=== PATIENT | female | born 1955 | race Caucasian/White ===

== ENCOUNTER 2022-08-24 02:55 | Inpatient (IN) | payer OTHER ==
[2022-08-24 03:40] LABS: Absolute Lymphocytes (CBC) 2.7 K/uL (0.7-4.9); Hematocrit 43.5 % (36.0-45.0); Lymphocytes % 21.3 % (15.3-44.8); MCV 88.3 fL (80-100); MPV 9.6 fL (7.6-11.3); RBC Red Blood Cell Count 4.93 M/uL (3.86-4.86)
[2022-08-24] MEDS ORDERED: ONDANSETRON 4 MG/2 ML VIAL ONE ×4 (03:44→10:17)
[2022-08-24] MEDS ORDERED: KETOROLAC 30 MG/ML INJ ONE (03:44)
[2022-08-24 03:50] LABS: Albumin 3.6 g/dL (3.4-5.0); Bilirubin Total 0.4 mg/dL (0.2-1.0); Potassium 3.2 mEq/L (3.5-5.1); Protein, Total 7.2 g/dL (6.4-8.2); Troponin High Sensitivity 6.5 pg/mL (<58.9)
[2022-08-24] MEDS ORDERED: CEFTRIAXONE 1000 MG/VIAL ONE (04:37)
[2022-08-24] MEDS ORDERED: MORPHINE 4 MG/ML SYR ONE (04:37)
[2022-08-24] MEDS ORDERED: METRONIDAZOLE 500mg IVPB 500 MG/100 ML BAG IV ONE (04:37)
--- NOTE | 2022-08-24 05:46 | EDPHYS ---
Physician Documentation [facility] Name: Jamia Lopez Age: 66 yrs Sex: Female : 1955 Arrival Date: 08/24/2022 Time: 02:55 Bed 5 Private MD: ED Physician Raul Rocha HPI: 08/24 03:09 This 66 yrs old Female presents to ER via Unassigned with complaints of bs3 Abdominal Pain, Nausea. 03:09 Patient has a history of a hysterectomy as well as an unknown tumor removal and htn who bs3 is using natural things for her blood pressure who presents with abdominal pain started at approximately midnight she is associated nausea is located in the right upper quadrant she feels like it is also in the epigastric region she denies any vomiting she denies any chest pain or shortness of breath she denies any lower abdominal pain she denies any urinary symptoms she had similar pain 1 week ago but it went away and so she was not concerned. She does not have associated numbness, tingling, weakness of her extremities. . Historical: - Allergies: 03:19 No Known Allergies; kd3 - Home Meds: 03:19 None [Active]; kd3 - PMHx: 03:19 Hypertensive disorder; kd3 - Immunization history:: Adult Immunizations up to date. - Social history:: Smoking status: Patient/guardian denies using tobacco, but has a distant history of tobacco abuse. ROS: 03:09 Constitutional: Negative for fever, chills bs3 03:09 All other systems are negative. Exam: 03:09 Constitutional: This is a well developed, well nourished patient who is awake, alert, bs3 and in no acute distress. Head/Face: Normocephalic, atraumatic. Eyes: Pupils equal round and reactive to light, extra-ocular motions intact. Lids and lashes normal. ENT: mmm, no posterior phyarngeal erythema Neck: Trachea midline, no thyromegaly, no neck stiffness Chest/axilla: Normal chest wall appearance and motion. Nontender with no deformity. No lesions are appreciated. Cardiovascular: Regular rate and rhythm with a normal S1 and S2. symmetric pulses in upper extremities Respiratory: Lungs have equal breath sounds bilaterally, clear to auscultation, no respiratory distress Abdomen/GI: tender in RUQ, no peritoneal signs. Skin: Warm, dry with normal turgor. Normal color with no rashes, no lesions, and no evidence of cellulitis. MS/ Extremity: Pulses equal, no cyanosis. Neurovascular intact. Full, normal range of motion. Neuro: Awake and alert, GCS 15, oriented to person, place, time, and situation. Cranial nerves II-XII grossly intact. Motor strength 5/5 in all extremities. Sensory grossly intact. Vital Signs: 03:17 BP 197 / 68; Pulse 65; Resp 18; Temp 98.5(O); Pulse Ox 98% on R/A; Weight 84.37 kg; kd3 Height 5 ft. 0 in. ; 04:08 BP 171 / 66; Pulse 56; Resp 16; Pulse Ox 99% on R/A; jb4 05:12 BP 130 / 52; Pulse 58; Resp 15; Pulse Ox 93% on R/A; jb4 06:02 BP 135 / 64; Pulse 57; Resp 16; Pulse Ox 94% on R/A; jb4 03:17 Body Mass Index 36.33 (84.37 kg, 152.4 cm) kd3 MDM: 03:00 Patient medically screened. bs3 03:09 Data reviewed: vital signs, nurses notes. ED course: 66-year-old with nausea and upper bs3 abdominal pain possible atypical acute coronary syndrome will get EKG possible pancreatitis although patient last drink alcohol on night possible biliary pathology or hepatitis we will check LFTs and ultrasound of the gallbladder will reassess, blood pressure elevated here patient counseled at length she likely needs at least 2 medications for proper blood pressure control and her natural remedies are not currently working. 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 05:41 ED course: Dr. Tonja lacey. bs3 08/24 03:09 Order name: CBC with Diff; Complete Time: 04:37 bs3 08/24 03:09 Order name: CMP; Complete Time: 04:19 bs3 08/24 03:09 Order name: Lipase; Complete Time: 04:19 bs3 08/24 03:09 Order name: Troponin High Sensitivity; Complete Time: 04:19 bs3 08/24 03:09 Order name: US Abdomen Limited bs3 08/24 03:09 Order name: IV Saline Lock; Complete Time: 03:21 bs3 08/24 03:09 Order name: Labs collected and sent; Complete Time: 03:21 bs3 08/24 03:09 Order name: EKG - Nurse/Tech; Complete Time: 03:33 bs3 Administered Medications: 03:42 Drug: TORadol - Ketorolac IVP 15 mg Route: IVP; Site: right antecubital; jb4 07:36 Follow up: Response: No adverse reaction iw 03:42 Drug: Ondansetron IVP 4 mg Route: IVP; Site: right antecubital; jb4 07:36 Follow up: Response: No adverse reaction iw 04:35 Drug: Ondansetron IVP 4 mg Route: IVP; Site: right antecubital; jb4 07:36 Follow up: Response: Nausea is decreased iw 04:37 Drug: morphine IVP or IV 8 mg Route: IVP; Infused Over: 4 mins; Site: right antecubital;jb4 07:36 Follow up: Response: No adverse reaction; Pain is decreased iw 04:42 Drug: Rocephin IV 1 grams Route: IV; Rate: bolus; Site: right antecubital; jb4 07:36 Follow up: IV Status: Completed infusion iw 04:45 Drug: metroNIDAZOLE IVPB 500 mg Volume: 100 ml; Route: IVPB; Rate: 200 ml/hr; Infused jb4 Over: 30 mins; Site: right antecubital; 07:00 Follow up: IV Status: Completed infusion iw Disposition Summary: 08/24/22 05:45 Hospitalization Ordered Hospitalization Status: Inpatient Admission bs3 Provider: Emeka Solis bs3 Location: Telemetry/MedSur (Inpatient) bs3 Condition: Fair bs3 Problem: new bs3 Symptoms: have improved bs3 Bed/Room Type: Standard bs3 Room Assignment: 212(08/24/22 06:02) Diagnosis - Acute cholecystitis bs3 Forms: - Medication Reconciliation Form bs3 - SBAR form bs3 Signatures: Dispatcher [employer] EDMS Verena Marsh RN RN mw Bryson, James, RN RN jb4 Nati Angulo RN RN kd3 Raul Rocha MD MD bs3 Mary Dickerson RN iw Corrections: (The following items were deleted from the chart) 03:17 03:09 ED course: 66-year-old with nausea and upper abdominal pain possible atypical bs3 acute coronary syndrome will get EKG possible pancreatitis although patient last drink alcohol on night possible biliary pathology or hepatitis we will check LFTs and ultrasound of the gallbladder will reassess. bs3 03:17 03:09 Patient has a history of a hysterectomy as well as an unknown tumor removal and bs3 several medical conditions who presents with abdominal pain started at approximately midnight she is associated nausea is located in the right upper quadrant she feels like it is also in the epigastric region she denies any vomiting she denies any chest pain or shortness of breath she denies any lower abdominal pain she denies any urinary symptoms she had similar pain 1 week ago but it went away and so she was not concerned. She does not have associated numbness, tingling, weakness of her extremities. . bs3 06:02 05:45 bs3 mw
--- NOTE | 2022-08-24 05:46 | ER ---
Nurse's Notes [facility] Name: Jamia Lopez Age: 66 yrs Sex: Female : 1955 Arrival Date: 08/24/2022 Time: 02:55 Bed 5 Private MD: Diagnosis: Acute cholecystitis Presentation: 08/24 03:17 Chief complaint: Patient states: I started to have some right upper quadrant pain that kd3 started last night at about 11:30 and it has not gone away. My blood pressure is elevated. I have been treating it naturally with cinnamon and garlic. Coronavirus screen: Vaccine status: Patient reports receiving the 2nd dose of the covid vaccine. Ebola Screen: No symptoms or risks identified at this time. Initial Sepsis Screen: Does the patient meet any 2 criteria? No. Patient's initial sepsis screen is negative. Does the patient have a suspected source of infection? No. Patient's initial sepsis screen is negative. Risk Assessment: Do you want to hurt yourself or someone else? Patient reports no desire to harm self or others. Onset of symptoms was August 24, 2022. 03:17 Method Of Arrival: Ambulatory kd3 03:17 Acuity: MAVERICK 3 kd3 Triage Assessment: 03:19 General: Appears uncomfortable, Behavior is calm, cooperative. Pain: Complains of pain kd3 in right upper quadrant. GI: Reports upper abdominal pain, vomiting. Historical: - Allergies: 03:19 No Known Allergies; kd3 - Home Meds: 03:19 None [Active]; kd3 - PMHx: 03:19 Hypertensive disorder; kd3 - Immunization history:: Adult Immunizations up to date. - Social history:: Smoking status: Patient/guardian denies using tobacco, but has a distant history of tobacco abuse. Screenin:35 [facility] ED Fall Risk Assessment (Adult) History of falling in the last 3 months, iw including since admission. Abuse screen: Denies threats or abuse. Denies injuries from another. Nutritional screening: No deficits noted. Tuberculosis screening: No symptoms or risk factors identified. Assessment: 03:15 General: Appears in no apparent distress. uncomfortable, Behavior is calm, cooperative, jb4 appropriate for age. Pain: Complains of pain in chest and abdomen Pain does not radiate. Pain currently is 8 out of 10 on a pain scale. Neuro: Level of Consciousness is awake, alert, obeys commands, Oriented to person, place, time, situation. Cardiovascular: Patient's skin is warm and dry. Respiratory: Airway is patent Respiratory effort is even, unlabored, Respiratory pattern is regular, symmetrical. GI: Abdomen is non-distended, obese, Reports upper abdominal pain, nausea. : No signs and/or symptoms were reported regarding the genitourinary system. EENT: No signs and/or symptoms were reported regarding the EENT system. Derm: Skin is intact, Skin is pink, warm \T\ dry. Musculoskeletal: Circulation, motion, and sensation intact. Range of motion: intact in all extremities. 04:10 Reassessment: Patient appears in no apparent distress at this time. Patient and/or jb4 family updated on plan of care and expected duration. Pain level reassessed. Patient is alert, oriented x 3, equal unlabored respirations, skin warm/dry/pink. 05:12 Reassessment: Patient appears in no apparent distress at this time. Patient and/or jb4 family updated on plan of care and expected duration. Pain level reassessed. Patient is alert, oriented x 3, equal unlabored respirations, skin warm/dry/pink. Patient states feeling better. 06:02 Reassessment: Patient appears in no apparent distress at this time. Patient and/or jb4 family updated on plan of care and expected duration. Pain level reassessed. Patient is alert, oriented x 3, equal unlabored respirations, skin warm/dry/pink. 07:35 GI: Bowel sounds present X 4 quads. Abd is soft X 4 quads. iw Vital Signs: 03:17 BP 197 / 68; Pulse 65; Resp 18; Temp 98.5(O); Pulse Ox 98% on R/A; Weight 84.37 kg; kd3 Height 5 ft. 0 in. ; 04:08 BP 171 / 66; Pulse 56; Resp 16; Pulse Ox 99% on R/A; jb4 05:12 BP 130 / 52; Pulse 58; Resp 15; Pulse Ox 93% on R/A; jb4 06:02 BP 135 / 64; Pulse 57; Resp 16; Pulse Ox 94% on R/A; jb4 03:17 Body Mass Index 36.33 (84.37 kg, 152.4 cm) kd3 ED Course: 02:59 Patient arrived in ED. ag3 03:00 Raul Rocha MD is Attending Physician. bs3 03:14 Samuel Samaniego, RN is Primary Nurse. jb4 03:19 Triage completed. kd3 03:19 Arm band placed on. kd3 03:57 US Abdomen Limited In Process Unspecified. EDMS 05:45 Emeka Solis is Hospitalizing Provider. bs3 07:34 Maintain EMS IV. Dressing intact. Good blood return noted. Site clean \T\ dry. Gauge \T\ iw site: 18 RAC. 07:35 Patient has correct armband on for positive identification. iw 07:35 No provider procedures requiring assistance completed. Patient admitted, IV remains in iw place. Administered Medications: 03:42 Drug: TORadol - Ketorolac IVP 15 mg Route: IVP; Site: right antecubital; jb4 07:36 Follow up: Response: No adverse reaction iw 03:42 Drug: Ondansetron IVP 4 mg Route: IVP; Site: right antecubital; jb4 07:36 Follow up: Response: No adverse reaction iw 04:35 Drug: Ondansetron IVP 4 mg Route: IVP; Site: right antecubital; jb4 07:36 Follow up: Response: Nausea is decreased iw 04:37 Drug: morphine IVP or IV 8 mg Route: IVP; Infused Over: 4 mins; Site: right antecubital;jb4 07:36 Follow up: Response: No adverse reaction; Pain is decreased iw 04:42 Drug: Rocephin IV 1 grams Route: IV; Rate: bolus; Site: right antecubital; jb4 07:36 Follow up: IV Status: Completed infusion iw 04:45 Drug: metroNIDAZOLE IVPB 500 mg Volume: 100 ml; Route: IVPB; Rate: 200 ml/hr; Infused jb4 Over: 30 mins; Site: right antecubital; 07:00 Follow up: IV Status: Completed infusion iw Medication: 07:35 VIS not applicable for this client. iw Outcome: 05:45 Decision to Hospitalize by Provider. bs3 07:35 Admitted to OR accompanied by nurse, via stretcher. iw 07:35 Condition: good 07:35 Discharge instructions given to patient, Instructed on the need for admit, Demonstrated understanding of instructions. 07:35 Patient left the ED. iw Signatures: Dispatcher [employer] Mary Cano, RN RN iw Samuel Samaniego RN RN jb4 Hailee Manriquez 3 Nati Angulo RN RN kd3 Raul Rocha MD MD bs3
--- NOTE | 2022-08-24 05:49 | P.HP ---
Certification for Inpatient Patient admitted to: Inpatient With expected LOS: <2 Midnights Patient will require the following post-hospital care: None Practitioner: I am a practitioner with admitting privileges, knowledge of patient current condition, hospital course, and medical plan of care. Services: Services provided to patient in accordance with Admission requirements found in Title 42 Section 412.3 of the Code of Federal Regulations Patient History Date of Service: 08/24/22 Reason for admission: Cholecystitis History of Present Illness: Ms. Lopez is a 66-year-old female with past medical history of hypertension who presented to the emergency department with complaints of right upper quadrant abdominal pain radiating to the back associated with nausea and vomiting. She reports she has been experiencing these symptoms on and off for about 1 month now, worse after eating. She was found to have an elevated white count of 12.8. Gallbladder US revealed large gall stones. Dr. Turner was contacted and has agreed to consult. she was started on ceftriaxone and flagyl in the ED. Pain controlled after morphine. She will be admitted for further management. Allergies No Known Allergies Allergy (Unverified 08/24/22 07:27) Home medications list reviewed: Yes (NA) Home Medications: NK [No Home Meds] 08/24/22 - Past Medical/Surgical History Diabetic: No -: Hypertension -: Hysterectomy Psychosocial/ Personal History: Patient is . - Family History Father -: Heart disease, Cancer Mother -: Heart disease - Social History Smoking Status: Never smoker Alcohol use: Yes CD- Drugs: No Caffeine use: Yes Place of Residence: Home Review of Systems Gastrointestinal: Nausea, Vomiting, Abdominal Pain Physical Examination - Vital Signs Temperature: 98.5 F Blood Pressure: 130/52 Pulse: 58 Respirations: 17 Pulse Ox (%): 93 - Physical Exam General: Alert, In no apparent distress HEENT: Atraumatic, EOMI, Sclerae nonicteric Neck: Supple, 2+ carotid pulse no bruit Respiratory: Clear to auscultation bilaterally, Normal air movement Cardiovascular: Regular rate/rhythm, Normal S1 S2 Gastrointestinal: Non-distended, Tenderness (moderate RUQ) Musculoskeletal: No tenderness Integumentary: No rashes Neurological: Normal speech, Normal affect - Studies Laboratory Data (last 24 hrs) 08/24/22 03:15: Sodium 137, Potassium 3.2 L, BUN 18, Creatinine 0.87, Glucose 177 H, Total Bilirubin 0.4, AST 22, ALT 34, Alkaline Phosphatase 120 H, Lipase 49 08/24/22 03:15: WBC 12.80 H, Hgb 14.3, Hct 43.5, Plt Count 303 Assessment and Plan - Problems (Diagnosis) (1) Cholecystitis Current Visit: Yes Status: Acute (2) Hypertension Current Visit: Yes Status: Chronic Qualifiers: Hypertension type: primary hypertension Qualified Code(s): I10 - Essential (primary) hypertension - Plan Patient is admitted for further management of cholelithiasis/cholecystitis. NPO. IV antibiotics & hydration. Dr. Turner to see patient, likely take patient to OR for lap zain. Pain control and antiemetics as needed. BP control. She has been trying to manage it at home naturally with cinnamon and garlic, does not take any medications. Monitor and replete electrolytes per protocol. DVT prophylaxis. Full code. Discharge Plan: Home Plan to discharge in: 48 Hours - Advance Directives Does patient have a Living Will: No Does patient have a Durable POA for Healthcare: No - Code Status/Comfort Care Code Status Assessed: Yes Code Status: Full Code Physician Review: Patient Assessed, Agree with Above Assessment and Plan Critical Care: No Time Spent Managing Pts Care (In Minutes): 50
[2022-08-24] MEDS ORDERED: MORPHINE 4 MG/ML SYR IV PRN (07:27)
[2022-08-24] MEDS: NA CHLORIDE 0.9% 1,000 ML IV SCH ×2 (07:27→17:41)
[2022-08-24] MEDS ORDERED: SUCCINYLCHOLINE 20 MG/ML (10 ML) IV ONE (07:42)
[2022-08-24] MEDS ORDERED: BUPIVACAINE 0.5% PF 10 ML VIAL ONE (07:44)
--- NOTE | 2022-08-24 07:51 | P.CNS ---
Date of Consult: 08/24/22 Reason for consult: Abdominal pain History of present illness: Patient is a 66-year-old female comes in with right upper quadrant abdominal pain radiating to the back associated with nausea, vomiting and burping patient. Patient denies any sore throat, runny nose, cough, headaches, dizziness, chest pain fever or chills. Patient denies any diarrhea, constipation, blood per rectum, dysuria or hematuria. Patient has had similar episodes in the recent past. Episodes are postprandial in nature. Last night patient had tacos. Patient required large amount of IV pain medication to control her pain. As patient had leukocytosis she was admitted with acute cholecystitis and cholelithiasis based on the work-up done. Review of systems: Otherwise unremarkable Past medical history: Hypertension Past surgical history: Total abdominal hysterectomy Allergies: None Social history: Does not smoke tobacco, drinks alcohol occasionally Family history: Noncontributory Vital signs: Stable, afebrile Physical exam: Awake alert oriented x3 Head and neck exam: Cranial nerves II through XII grossly within normal limits, no neck masses, no JVD, throat clear and no evidence of icterus Chest: Clear Heart: S1-S2 Abdomen: Soft, nondistended, positive bowel sounds and positive right upper quadrant tenderness with minimal rebound, no rigidity or guarding Extremity: Neurovascular intact, nontender Neuro: Nonfocal Diagnostic data: Ultrasound shows cholelithiasis, White count is 12.8 Assessment: Acute cholecystitis and cholelithiasis Plan/recommendation: Admit, n.p.o., IV fluids, IV antibiotics and to the OR for laparoscopic cholecystectomy possible open. Patient understands risk benefits alternatives and agrees to procedure. CC:
[2022-08-24] MEDS ORDERED: Ringers Lactate 1,000 ML IV ONE (07:53)
[2022-08-24] MEDS ORDERED: propofoL 200 MG/20 ML VIAL IV ONE (08:09)
[2022-08-24] MEDS ORDERED: LIDOCAINE 2% MPF 5 ML VIAL ONE (08:09)
[2022-08-24] MEDS ORDERED: FENTANYL CITR 100 MCG/2 ML ONE (08:09)
[2022-08-24] MEDS ORDERED: MIDAZOLAM HCL 2 MG/2 ML INJ ONE (08:09)
[2022-08-24] MEDS ORDERED: ROCURONIUM 50 MG/5 ML VIAL IV ONE (08:09)
[2022-08-24] MEDS ORDERED: EPHEDRINE SULF 50 MG/ML VIAL ONE (08:40)
[2022-08-24] MEDS: CEFTRIAXONE 1,000 MG in NA CHLORIDE 0.9% 50 ML IVPB SCH (09:00)
[2022-08-24] MEDS: HEPARIN 5000 UNIT/ML 1 ML VIAL SQ SCH (09:00)
[2022-08-24] MEDS ORDERED: MEPERIDINE HCL 25 MG/ML SYR ONE (09:23)
[2022-08-24] MEDS ORDERED: dexAMETHasone 4 MG/ML VIAL ONE ×2 (09:24→09:25)
[2022-08-24] MEDS ORDERED: NEOSTIGMINE 1 MG/ML -10 ML VIAL ONE (09:29)
[2022-08-24] MEDS ORDERED: GLYCOPYRROLATE 0.2 MG/ML SYR ONE (09:29)
--- NOTE | 2022-08-24 09:44 | P.OP ---
Date of Service: 08/24/22 Preop diagnosis: Acute cholecystitis and cholelithiasis Postop diagnosis: Same, umbilical hernia Procedure performed: Laparoscopic cholecystectomy, repair of umbilical hernia Surgeon: Olvin Turner MD Asphalt Machine Operator: Shey YEPEZ Estimated blood loss: Minimal Specimen: Gallbladder and hernia sac Findings: As above Anesthesia: General Complications: None Drains: None Fluids and blood products: Nonapplicable Disposition: Recovery room Operative note: Patient brought to the OR and placed in the supine position. General anesthesia begun. Patient prepped and draped in the usual sterile fashion. Upon examination of the abdomen patient was noted to have a umbilical hernia. A 2 cm incision was made over the hernia after Marcaine 0.5% was infiltrated locally for postop pain control. Subcutaneous tissue divided and bleeding controlled cautery. Hernia sac and contents identified and excised and sent to pathology. 1.5 cm fascial defect remained. 12 mm trocar placed into the peritoneal cavity under direct vision. Number one 1 Vicryl stay sutures were placed prior to that. Pneumoperitoneum established. Three 5 mm trocars placed into the abdomen. 1 trocar placed in the epigastric region just to the right of midline. Two 5 mm trocar placed in the right subcostal region. There was extensive adhesions near the gallbladder. These were lysed with sharp and blunt dissection. The gallbladder was full of large stones. Fundus was retracted superiorly. Infundibulum identified and retracted inferolaterally. Cystic duct and cystic artery clearly identified with blunt dissection. Clips placed and both structures divided. Cautery used to remove the gallbladder from the liver bed. There was oozing from the liver bed. Most of it was easily controlled with cautery. At the end of the case this area was monitored carefully. Anorexia and Surgicel were utilized in the standard fashion to prevent further oozing. Prior to that he fluid was clear and there was no evidence of bleeding or bile leakage appreciated. Gallbladder was retrieved through the umbilicus via Endo Catch bag. And #1 Vicryl was used to close the hernia defect after the trocars were removed under direct vision. Subcutaneous wounds irrigated and bleeding controlled cautery. 3-0 chromic used to reapproximate subcutaneous tissue and close skin. Sterile dressing applied. Patient awakened and taken to recovery room in good general condition. CC:
[2022-08-24] MEDS ORDERED: Mastisol Adhesive Liq ONE (09:46)
[2022-08-24] MEDS ORDERED: ONDANSETRON 4 MG/2 ML VIAL IV PRN (09:46)
[2022-08-24] MEDS ORDERED: NA CHLORIDE 0.9% 1,000 ML ONE (10:01)
[2022-08-24] MEDS: HYDROMORPHONE HCL 1 MG/ML INJ ONE ×2 (10:10→10:15)
[2022-08-24 10:56] VITALS: BMI 36.3
[2022-08-24] MEDS ORDERED: HYDROMORPHONE HCL 1 MG/ML INJ IV ONE (11:13)
[2022-08-24] MEDS: METRONIDAZOLE 500mg IVPB 500 MG/100 ML BAG IV SCH ×2 (12:26→21:11)
[2022-08-24] MEDS: HYDROMORPHONE HCL 1 MG/ML INJ IV PRN (16:24)
--- NOTE | 2022-08-24 20:53 | RAD REPORT ---
EXAM DESCRIPTION: US - Abdomen Exam Limited - 08/24/2022 3:55 am CLINICAL HISTORY: The patient is 66 years old and is Female; ABD PAIN TECHNIQUE: Real-time ultrasound of the right upper quadrant with image documentation. COMPARISON: No relevant prior studies available. FINDINGS: Gallbladder: Multiple stones in the gallbladder. Gallbladder wall thickness 2.3 mm. No pericholecystic fluid visualized. Common bile duct: Common bile duct 4.1 mm in diameter. No stones. No dilation. IMPRESSION: Cholelithiasis. Electronically signed by: Karen Flores MD 08/24/2022 6:02 AM CDT Due to temporary technical issues with the PACS/Fluency reporting system, reports are being signed by the in house radiologists without review as a courtesy to insure prompt reporting. The interpreting radiologist is fully responsible for the content of the report.
[2022-08-24] MEDS: HYDROCODONE/APAP 7.5/325 MG TAB PO PRN (21:21)
[2022-08-25 03:11] LABS: Absolute Lymphocytes (CBC) 1.1 K/uL (0.7-4.9); Hematocrit 38.4 % (36.0-45.0); Lymphocytes % 5.3 % (15.3-44.8); MCV 88.9 fL (80-100); MPV 9.8 fL (7.6-11.3); RBC Red Blood Cell Count 4.32 M/uL (3.86-4.86)
[2022-08-25] MEDS: HYDROCODONE/APAP 7.5/325 MG TAB PO PRN (03:13)
[2022-08-25 03:28] LABS: Magnesium 1.9 mg/dL (1.6-2.4); Phosphorus 2.4 mg/dL (2.5-4.9)
[2022-08-25] MEDS: METRONIDAZOLE 500mg IVPB 500 MG/100 ML BAG IV SCH ×3 (04:32→20:19)
[2022-08-25] MEDS: POTASS/SODIUM PHOSPHATE 1 PKT POWD.PACK PO SCH ×3 (04:32→06:26)
[2022-08-25] MEDS: NA CHLORIDE 0.9% 1,000 ML IV SCH ×4 (04:33→23:27)
[2022-08-25 05:04] LABS: Blood Morphology Comment NOT SEEN (NOT SEEN); Platelet Estimate ADEQ; White Blood Cell Scan OK (OK)
[2022-08-25] MEDS ORDERED: PNEUMOCOCCAL VACCINE 0.5 ML IMVAC ONE (09:00)
[2022-08-25] MEDS: CEFTRIAXONE 1,000 MG in NA CHLORIDE 0.9% 50 ML IVPB SCH (09:47)
--- NOTE | 2022-08-25 09:53 | PN ---
Date of Progress Note: 08/25/2022 Subjective: The patient is awake, alert, tolerating diet, ambulating, pain controlled. Objective: Vital Signs: Stable, afebrile. Abdomen: Benign. Laboratory Data: White count, however, is 21,000. Assessment: Status post laparoscopic cholecystectomy for acute cholecystitis and cholelithiasis. Recommendations: Encourage incentive spirometry, ambulation, and IV antibiotics. Possible discharge tomorrow if her white count improves. Clinically, the patient is doing well. The patient did have very bad inflammation of the gallbladder. /MODL Voice ID: [id number] Report ID: [id number]
[2022-08-25] MEDS: HEPARIN 5000 UNIT/ML 1 ML VIAL SQ SCH ×2 (10:18→18:20)
[2022-08-25] MEDS: HYDROMORPHONE HCL 1 MG/ML INJ IV PRN ×3 (10:18→20:19)
--- NOTE | 2022-08-25 12:00 | P.PN ---
Subjective Date of Service: 08/25/22 Chief Complaint: Cholecystitis Patient has no new complaint. She is eating well. Her white cell count is elevated. She reported intermittent abdominal pain well controlled with the pain medications. Physical Examination - Vital Signs Temperature: 97.7 F Blood Pressure: 148/70 Pulse: 67 Respirations: 14 Pulse Ox (%): 94 - Physical Exam General: Alert, In no apparent distress, Oriented x3 HEENT: Mucous membr. moist/pink Neck: JVD not distended Respiratory: Clear to auscultation bilaterally, Normal air movement Cardiovascular: No edema, Regular rate/rhythm, Normal S1 S2 Gastrointestinal: Normal bowel sounds, Soft and benign, Non-distended Musculoskeletal: No swelling Integumentary: No cyanosis Neurological: Normal strength at 5/5 x4 extr Assessment And Plan - Current Problems (Diagnosis) (1) Acute cholecystitis Current Visit: Yes Status: Acute (2) Leukocytosis Current Visit: Yes Status: Acute (3) Hypertension Current Visit: Yes Status: Chronic Qualifiers: Hypertension type: primary hypertension Qualified Code(s): I10 - Essential (primary) hypertension - Plan Status post lap cholecystectomy yesterday. Leukocytosis elevated. No fever. Case discussed with Dr. Turner recommend 1 more day of IV antibiotics and to trend WBC. Continue IV Rocephin and Flagyl. Diet as tolerated Pain management as needed.
--- NOTE | 2022-08-25 17:34 | EKG ---
Test Date: 2022-08-24 Test Time: 03:29:27 Field Captain: EMI MEASUREMENT RESULTS: Intervals: Rate: 55 VT: 162 QRSD: 82 QT: 438 QTc: 419 Valdez: P: 51 VT: 162 QRS: 26 T: 44 INTERPRETIVE STATEMENTS: Sinus bradycardia Otherwise normal ECG Compared to ECG 11/14/2010 10:25:20 Sinus rhythm no longer present Electronically Signed On 08-25-22 17:33:26 CDT by Abebe Chaves
[2022-08-25 20:02] LABS: Specific Gravity 1.012 (1.005-1.030); Urine Bilirubin NEGATIVE (Negative); Urine Blood Negative (Negative); Urine Clarity Clear (Clear); Urine Color Light-Yellow (Yellow); Urine Glucose NEGATIVE (Negative); Urine Protein NEGATIVE (Negative); Urine Urobilinogen Normal (Normal)
[2022-08-26] MEDS: HEPARIN 5000 UNIT/ML 1 ML VIAL SQ SCH ×2 (00:29→09:00)
[2022-08-26] MEDS: NA CHLORIDE 0.9% 1,000 ML IV SCH ×2 (03:07→09:27)
[2022-08-26 03:56] LABS: Absolute Lymphocytes (CBC) 1.9 K/uL (0.7-4.9); Hematocrit 35.7 % (36.0-45.0); Lymphocytes % 14.5 % (15.3-44.8); MCV 89.8 fL (80-100); MPV 10.2 fL (7.6-11.3); RBC Red Blood Cell Count 3.97 M/uL (3.86-4.86)
[2022-08-26 04:05] LABS: Phosphorus 2.5 mg/dL (2.5-4.9); Potassium 3.6 mEq/L (3.5-5.1)
[2022-08-26] MEDS: METRONIDAZOLE 500mg IVPB 500 MG/100 ML BAG IV SCH (04:09)
[2022-08-26] MEDS: POTASS/SODIUM PHOSPHATE 1 PKT POWD.PACK PO SCH ×3 (06:33→09:00)
[2022-08-26 08:38] VITALS: O2SAT 95
--- NOTE | 2022-08-26 08:58 | P.DS ---
Admission Date: 08/24/22 Discharge Date: 08/26/22 Disposition: ROUTINE DISCHARGE Discharge Condition: FAIR Reason for Admission: Cholecystitis - Problems (1) Acute cholecystitis Current Visit: Yes Status: Acute (2) Leukocytosis Current Visit: Yes Status: Acute (3) Hypertension Current Visit: Yes Status: Chronic Qualifiers: Hypertension type: primary hypertension Qualified Code(s): I10 - Essential (primary) hypertension Brief History of Present Illness: Ms. Lopez is a 66-year-old female with past medical history of hypertension who presented to the emergency department with complaints of right upper quadrant abdominal pain radiating to the back associated with nausea and vomiting. She reported experiencing these symptoms on and off for about 1 month now, worse after eating. She was found to have an elevated white count of 12.8. Gallbladder US revealed large gall stones. Dr. Turner was contacted. She was started on ceftriaxone and flagyl in the ED. Pain controlled after morphine. She was admitted for further management Hospital Course: Patient admitted to to the medical floor and started on IV Rocephin and Flagyl. She was seen by surgery Dr. Turner who performed lap cholecystectomy. Leukocytosis was elevated next day, no fever. Patient was treated with 1 more day of IV antibiotics. Leukocytosis almost resolved, patient has tolerated diet and currently has no complaint, she has been afebrile. She had a bowel movement today Patient is deemed stable for discharge per surgery. She is discharged with oral antibiotics. Vital Signs/Physical Exam: Temp Pulse Resp BP Pulse Ox 98.2 F 73 17 129/60 91 08/26/22 04:00 08/26/22 04:00 08/26/22 04:00 08/26/22 04:00 08/26/22 04:00 General: Alert, In no apparent distress, Oriented x3 HEENT: Mucous membr. moist/pink Neck: JVD not distended Respiratory: Clear to auscultation bilaterally, Normal air movement Cardiovascular: Regular rate/rhythm, Normal S1 S2 Gastrointestinal: Normal bowel sounds, Soft and benign, Non-distended, Other (Trocar wounds with clean dressing) Musculoskeletal: No swelling Integumentary: No rashes Neurological: Normal strength at 5/5 x4 extr Laboratory Data at Discharge: WBC 12.80 thou/uL (4.3-10.9) H 08/26/22 03:01 Hgb 11.5 g/dL (12.0-15.0) L D 08/26/22 03:01 Hct 35.7 % (36.0-45.0) L 08/26/22 03:01 Plt Count 205 thou/uL (152-406) 08/26/22 03:01 Sodium 142 mEq/L (136-145) D 08/26/22 03:01 Potassium 3.6 mEq/L (3.5-5.1) 08/26/22 03:01 BUN 14 mg/dL (7-18) 08/26/22 03:01 Creatinine 0.68 mg/dL (0.55-1.02) 08/26/22 03:01 Glucose 148 mg/dL (74-106) H 08/26/22 03:01 Phosphorus 2.5 mg/dL (2.5-4.9) 08/26/22 03:01 Magnesium 1.9 mg/dL (1.6-2.4) 08/25/22 02:50 Total Bilirubin 0.4 mg/dL (0.2-1.0) 08/24/22 03:15 AST 22 U/L (15-37) 08/24/22 03:15 ALT 34 U/L (13-56) 08/24/22 03:15 Alkaline Phosphatase 120 U/L (45-117) H 08/24/22 03:15 Lipase 49 U/L (13-75) 08/24/22 03:15 Home Medications: Ciprofloxacin HCl [Cipro 500 MG Tablet] 500 mg PO BID #14 tab 08/26/22 Codeine/APAP [Tylenol W/Codeine #3 tab] 1 tab PO Q6HP PRN #15 tab 08/26/22 metroNIDAZOLE [Flagyl] 500 mg PO Q8H #21 tab 08/26/22 New Medications: Codeine/APAP [Tylenol W/Codeine #3 tab] 1 tab PO Q6HP PRN #15 tab PRN Reason: Pain Ciprofloxacin HCl [Cipro 500 MG Tablet] 500 mg PO BID #14 tab metroNIDAZOLE [Flagyl] 500 mg PO Q8H #21 tab Physician Discharge Instructions: Patient may shower Keep Steri-Strips on at all times No heavy lifting or strenuous exercise Incentive spirometry as directed Follow-up my office 1 week, call for appointment Antibiotics and pain medicine called in by Dr. Solis Diet: Regular Activity: Ad radha Followup: NONE,NONE [Primary Care Provider] - 1 Week (Please call to schedule an appointment. ) Olvin Turner MD [ACTIVE - CAN ADMIT] - 1 Week (Please call to schedule an appointment. ) Time spent managing pt's care (in minutes): 35
[2022-08-26] MEDS: CEFTRIAXONE 1,000 MG in NA CHLORIDE 0.9% 50 ML IVPB SCH (09:00)
[2022-08-26] MEDS ORDERED: POTASSIUM 25 MEQ EFFERV TAB PO ONE (09:00)
--- NOTE | 2022-08-26 10:02 | PN ---
Date of Progress Note: 08/26/2022 Subjective: The patient is awake, alert. No complaint. Pain is well controlled. Objective: Vital Signs: Stable, afebrile. Abdomen: Benign. Laboratory Data: White count is down to the lower 12,000. Assessment: Status post lap choly for acute cholecystitis and cholelithiasis. Recommendations: The patient is cleared for discharge on oral antibiotics and pain medicines. Erika w up in my office 1 week. Discharge instructions given and documented. /MODL Voice ID: [id number] Report ID: [id number]
[2022-08-26 10:25] VITALS: BP 179/71; TEMP 98.6
== END 2022-08-26 10:50 | disposition home or self-care (01) | DRG 419 ==
LOC: ER 02:55 → ERHOLD 06:51 → 2ND 08:10
PROVIDERS: ADMIT Internal Medicine; ATTEND Internal Medicine
PROC: 0WQF4ZZ Repair Abdominal Wall, Percutaneous Endoscopic Approach (ICD-10-PCS; 2022-08-24)
PROC: 0FT44ZZ Resection of Gallbladder, Percutaneous Endoscopic Approach (ICD-10-PCS; principal; 2022-08-24 08:00)
DX: K80.00 Calculus of gallbladder with acute cholecystitis without obstruction (principal); K42.9 Umbilical hernia without obstruction or gangrene; I10 Essential (primary) hypertension; D72.829 Elevated white blood cell count, unspecified; Z90.710 Acquired absence of both cervix and uterus; Z87.891 Personal history of nicotine dependence
CPT/HCPCS: 36415; 76705; 80048; 80053; 81003; 83690; 83735; 84100; 84484; 85025; 88302; 88304; 93005; 94010; 96365; 96366; 96375; 99285; J0696; J1100; J1170; J1644; J2001; J2175; J2250; J2405; J2704; J2710; J3010; J7030; J7120